=== PATIENT | female | born 2000 | race Hispanic/Latino ===

== ENCOUNTER 2020-01-07 16:49 | Emergency (ER) | payer MEDICAID, OTHER ==
[~2020-01-07 16:49] MED LIST: FERR500P12 MC; TYL3 PO
[2020-01-07] MEDS ORDERED: ONDANSETRON ODT 4 MG TAB ONE (17:16)
== END 2020-01-07 18:42 | disposition home or self-care (01) ==
LOC: EDH 16:49
DX: F41.1 Generalized anxiety disorder (principal); Z90.49 Acquired absence of other specified parts of digestive tract; Z98.890 Other specified postprocedural states

== ENCOUNTER 2022-05-20 16:20 | Emergency (ER) | payer OTHER ==
[~2022-05-20] VITALS: Ht 149.9 cm; Wt 71.7 kg
[2022-05-20 17:00] LABS: BASOPHILS % (AUTO) 0.1 % (0.0-5.0); EOSINOPHILS % (AUTO) 4.5 % (0.0-8.0); HEMATOCRIT 32.7 % (36-48); LYMPHOCYTES % (AUTO) 29.3 % (21.0-51.0); MEAN CORPUSCULAR HGB CONC 31.2 g/dL (32.0-36.0); MEAN CORPUSCULAR VOLUME 76.9 fL (79-99); MONOCYTES % (AUTO) 4.1 % (3.0-13.0); NEUTROPHILS % (AUTO) 61.7 % (40.0-77.0); PLATELET COUNT (AUTO) 343 K/uL (130-400); RED BLOOD CELL COUNT(AUTO) 4.25 MIL/uL (4.00-5.50); RED CELL DISTRIBUTION WIDTH 17.6 % (11.0-15.5); WHITE BLOOD COUNT (AUTO) 9.2 K/uL (4.8-10.8)
[2022-05-20] MEDS ORDERED: FAMOTIDINE 20MG VIAL IV ONE (17:00)
[2022-05-20] MEDS ORDERED: SOLU-MEDROL 125MG VIAL IVP ONE (17:00)
[2022-05-20] MEDS ORDERED: 0.9%NACL 1000ML 1,000 ML IV ONE (17:00)
[2022-05-20 17:16] LABS: BILIRUBIN,TOTAL 0.1 mg/dL (0.2-1.0); CREATININE 1.1 mg/dL (0.5-1.5); TOTAL PROTEIN, SERUM 6.3 g/dL (6.0-8.3)
[2022-05-20] MEDS ORDERED: POTASSIUM BICARB/CIT AC 25 MEQ TABLET.EFF PO ONE (18:30)
[2022-05-20] MEDS ORDERED: DIPH25 PO (19:05)
[2022-05-20] MEDS ORDERED: EPIN1KIT IJ (19:05)
[2022-05-20] MEDS ORDERED: PRED20TA3 PO (19:05)
[2022-05-20 19:08] VITALS: BP 106/51
== END 2022-05-20 19:20 | disposition home or self-care (01) ==
LOC: EDH 16:20
DX: T78.49XA Other allergy, initial encounter (principal); X58.XXXA Exposure to other specified factors, initial encounter
CPT/HCPCS: 36415; 80053; 82550; 85025; 96361; 96374; 96375; 99284; J2930; J3490; J7030

== ENCOUNTER 2023-07-13 19:31 | Emergency (ER) | payer BC, MEDICAID, OTHER ==
[~2023-07-13] VITALS: Ht 149.9 cm; Wt 68.9 kg
[~2023-07-13 19:31] MED LIST changes: +DIPH-1242 PO; +EPIN1KIT IJ; +PRED20TA3 PO
[2023-07-13 19:46] VITALS: BP 131/70; PULSE 73; RESP 18; O2SAT 98
== END 2023-07-13 21:37 | disposition left against medical advice (07) ==
LOC: EDH 19:31
DX: R10.9 Unspecified abdominal pain (principal); Z53.21 Procedure and treatment not carried out due to patient leaving prior to being seen by health care provider

== ENCOUNTER 2025-01-07 00:15 | Emergency (ER) | payer SELFPAY ==
[~2025-01-07] VITALS: Ht 149.9 cm; Wt 74.4 kg
--- NOTE | 2025-01-07 01:16 | ERN ---
ED Note History of Present Illness Stated Complaint: C/O PAIN W/BURNING WHEN VOIDING, LOWER BACK PAIN Chief Complaint: Painful Urination Time Seen by MD: 00:20 Time Seen by Midlevel: 00:20 Dictation: The patient is a 24-year-old female with a history of , cholecystectomy who presents to the emergency department with complaints of bilateral flank pain, more on the left, burning urination, nausea nonbloody vomiting, onset today. Patient denies any diarrhea or constipation. Reports l pain radiates to the left mid abdomen. Allergies: Coded Allergies: No Known Allergies (Unverified Allergy, Unknown, 07/31/15) Home Meds Active Scripts Sulfamethoxazole/Trimethoprim (Bactrim Ds Tablet) 800 Mg-160 Mg Tablet, 1 TAB PO BID for 7 Days, #14 TAB 0 Refills Prov:KRIS KING 01/07/25 Diphenhydramine HCl (Benadryl) 25 Mg Cap, 25 MG PO Q6HPRN PRN for RASH, #25 CAP Prov:GREG MOON [facility] 05/20/22 Prednisone (Prednisone) 20 Mg Tablet, 1 TAB PO AD for 6 Days, #14 TAB 0 Refills TAKE 1 TAB BY MOUTH THREE TIMES PER DAY X3 DAYS, THEN TAKE 1 TAB BY MOUTH TWICE A DAY X2 DAYS, THEN TAKE 1 TAB BY MOUTH ONCE A DAY X1 DAY. Prov:GREG MOON [facility] 05/20/22 Epinephrine (Epinephrine Professional Kit) 1 Mg/1 Ml Kit, 1 MG IJ ONCE, #1 KIT Prov:GREG MOON [facility] 05/20/22 Reported Medications Ferrous Sulfate, Dried (Ferrous Sulfate) 500 Gm Powder, 325 GM MC DAILY for A NEMIA, #30 APPL 08/04/15 Acetaminophen with Codeine (Tylenol with Codeine #3) 1 Tab Tab, 1 TAB PO Q4H PRN for PAIN, #20 TAB 08/04/15 Past Medical History Past Medical History: No Pertinent History Surgical History: Cholecystectomy, LMP: Nov 27, 2024 RN Note Reviewed/Agreed w/PFSH: Yes Review of System Dictation Constitutional: Negative for fever,chills, and weight loss Eyes: Negative for injury, pain,redness, and discharge ENT: Negative for injury,pain or swelling Cardiovascular: Negative for chest pain, palpitations, and edema Respiratory: Negative for shortness of breath, cough, and wheezing, Abdomen/GI: Negative for diarrhea, and constipation positive for nausea and vomiting positive for abdominal pain Back: Negative for injury and pain : Negative for injury, bleeding and discharge positive for bilateral flank pain MS/Extremity: Negative for injury and deformity Skin: Negative for rash, and discoloration Neuro: Negative for headache, weakness, numbness, tingling, and seizure Psych: Negative for suicide ideation, homicidal ideation, and hallucinations Initial Vital Sign VS Vital Signs Date Time Temp Pulse Resp B/P (MAP) Pulse Ox O2 Delivery O2 Flow Rate FiO2 01/07/25 00:18 98.4 70 20 114/77 97 Room Air Physical Exam Dictation Vital Signs reviewed General Appearance: Alert, oriented x 3, no acute distress, well developed, nourished. Head and Face: non-traumatic. Eyes: PERRL, pink conjunctivas, eyelid no trauma, anterior chamber with arcus senilis. Ears: Pinnas intact and no signs of trauma or erythema ear canals clear and no discharge TM no erythema Nose: No discharge, no bleeding. Oropharynx: Mouth normal, tongue pink. pharynx clear,no erythema, tonsils no exudates, no abscesses noted, mucous membrane moist Neck: Supple, non-tender, no thyromegaly, no masses, no JVD, no bruits Breast:Deferred Chest:No tenderness, no crepitus, no paradoxical movement, no retractions Lungs:Clear, well-ventilated, symmetric, no rales, no wheezing, no rhonchi, no stridor, good breath sounds bilaterally Heart: Regular rate, regular rhythm, no murmur, no gallops Vascular: no peripheral edema, Abdomen: Soft, positive bowel sounds, nondistended, no guarding, nontender, no rebound, no masses no hepatomegaly, no splenomegaly, no Horvath's sign, no hernias. Rectal: Deferred Genital: Deferred Neurological: Normal speech, motor function intact, sensory function intact Musculoskeletal: Neck nontender, full range of motion, back nontender, full range of motion, Extremities: nontender, full range of motion Skin: Color pink, dry, no turgor, no rash, no lacerations, no abrasions, no contusions. Lymphatic: Deferred Results (Laboratory/Radiology) Labs Reviewed?: Yes ED Course ED Course Orders Procedure Category Date Status Time Urinalysis Profile LAB 01/07/25 Logged 00:22 ,Urine Test LAB 01/07/25 Logged 00:27 Cbc With Differential LAB 01/07/25 Logged 00:37 0.9%Nacl 1000ml (Ns PHA 01/07/25 Complete 1000ml) 01:00 Ondansetron 4mg Inj PHA 01/07/25 Complete (Zofran 4mg Inj) 01:00 Basic Metabolic Panel LAB 01/07/25 Logged 00:37 Acetaminophen 500mg PHA 01/07/25 Complete Tab (Tylenol 500mg T 01:00 Ceftriaxone 1g Vial PHA 01/07/25 In Process (Rocephine 1g Inj) 04:30 Current Medications Medications (Trade) Dose Ordered Sig/Andrew Route PRN Reason Start Time Stop Time Status Last Admin Dose Admin Acetaminophen (TYLenol 500MG TAB) 1,000 mg ONCE ONCE PO 01/07/25 01:00 01/07/25 01:01 DC 01/07/25 02:26 Ceftriaxone Sodium (ROCEphine 1G INJ) 1 gm ONCE ONCE IM 01/07/25 04:30 01/07/25 04:31 Ondansetron HCl (zoFRAN 4MG INJ) 4 mg ONCE ONCE IVP 01/07/25 01:00 01/07/25 01:01 DC 01/07/25 02:25 Sodium Chloride 1,000 ml @ 0 mls/hr ONCE ONCE IV 01/07/25 01:00 01/07/25 01:01 DC 01/07/25 02:26 Vital Signs Date Time Temp Pulse Resp B/P (MAP) Pulse Ox O2 Delivery O2 Flow Rate FiO2 01/07/25 00:18 98.4 70 20 114/77 97 Room Air 2:00 a.m. patient care transition to Kris King PA-C Medical Decision Making MDM The patient is a 24-year-old female with a history of , cholecystectomy who presents to the emergency department with complaints of bilateral flank pain, more on the left, burning urination, nausea nonbloody vomiting, onset today. Patient denies any diarrhea or constipation. Reports l pain radiates to the left mid abdomen. Physical exam is reassuring. Vital signs are stable. Basic labs and UA was ordered. Patient was given IV fluids and p.o. Tylenol. There was a miscommunication regarding patient's blood work. Patient's blood work was never collected. According to the patient she provided a urinalysis sample but according to her lab staff they never received it. After 4 hours in the emergency department staff realized blood work had not been performed. I went to reassess the patient and she was stating that she would like to go home. Given that the patient was presenting with low back pain and dysuria we will treat for urinary tract infection. The patient was agreeable with this plan. The patient was given 1 g of Rocephin IM and was discharged home with a prescription for Bactrim. DX & DISP Disposition: Discharge Departure Impression: Primary Impression: Dysuria Condition: Stable Scripts Sulfamethoxazole/Trimethoprim (Bactrim Ds Tablet) 800 Mg-160 Mg Tablet 1 TAB PO BID for 7 Days, #14 TAB 0 Refills Prov: KRIS KING 01/07/25 Referrals: SELF,REFERRAL (PCP) I have reviewed the case, and I agree with, Diagnosis and Plan I performed the substantive portion of the visit. I have reviewed and personally made and approve the management plan that is documented in the note by myself or the CAMACHO. I acknowledge for responsibility for the patient's managem ent plan. SILVESTRE OVALLES Jan 07, 2025 01:16 KRIS KING Jan 07, 2025 01:56
[2025-01-07] MEDS: ondanSETRON 4MG INJ IVP ONE (02:25)
[2025-01-07] MEDS: acetaMINOPHEN 500 MG TABLET PO ONE (02:26)
[2025-01-07] MEDS: 0.9%NACL 1000ML 1,000 ML IV ONE (02:26)
--- NOTE | 2025-01-07 04:00 | NUR ---
PER PATIENT SHE HAD GIVEN A URINE SAMPLE. PER LAB, THEY NEVER RECIEVED THE URINE SAMPLE. KRIS WINN NOTIFIED. KRIS AT BEDSIDE SPEAKING WITH PATIENT. Addendum: 01/07/25 at 0448 by [email or web address] PER PATIENT SHE HAD GIVEN A URINE SAMPLE. PATIENT REFUSED LABS. PATIENT WANT IV TO BE REMOVED AND WANTED TO GO HOME. PER LAB, THEY NEVER RECIEVED THE URINE SAMPLE. KRIS WINN NOTIFIED. KRIS AT BEDSIDE SPEAKING WITH PATIENT.
[2025-01-07] MEDS: cefTRIAXone 1G VIAL IM ONE (04:21)
[2025-01-07] MEDS ORDERED: SULF1TAB42 PO (04:22)
[2025-01-07 04:30] VITALS: BP 116/78; PULSE 78; RESP 16; TEMP 98.8; O2SAT 99
[2025-01-07] MEDS: cefTRIAXone 1G VIAL ONE (04:45)
== END 2025-01-07 04:52 | disposition home or self-care (01) ==
LOC: EDH 00:15
DX: R30.0 Dysuria (principal); Z79.899 Other long term (current) drug therapy; Z90.49 Acquired absence of other specified parts of digestive tract; Z98.890 Other specified postprocedural states
CPT/HCPCS: 99284; 96374; 96361; 96372; J7030; J0696; J2405

== ENCOUNTER 2025-02-19 19:27 | Emergency (ER) | payer SELFPAY ==
[~2025-02-19] VITALS: Ht 149.9 cm; Wt 76.2 kg
[~2025-02-19 19:27] MED LIST changes: +SULF1TAB42 PO
--- NOTE | 2025-02-19 19:44 | ERN ---
General Chief Complaint: Vaginal Bleeding Stated Complaint: VAGINAL BLEEDING Time Seen by MD: 19:28 Source: patient History of Present Illness Initial Comments Patient is a healthy 24-year-old female five para three one miscarriage. This is her 5th , she thinks she is 11 weeks and five days . For the last day she has noted vaginal bleeding as well as back pain and abdominal pain lower left greater than right. Her deliveries have all been by . She states no chronic health problems no diabetes no medications no allergies. She does have nausea but she associates that with her . Timing/Duration: 24 hours Severity: mild Allergies: Coded Allergies: No Known Allergies (Unverified Allergy, Unknown, 07/31/15) Home Meds Active Scripts Sulfamethoxazole/Trimethoprim (Bactrim Ds Tablet) 800 Mg-160 Mg Tablet, 1 TAB PO BID for 7 Days, #14 TAB 0 Refills Prov:KRIS ELIZABETH 01/07/25 Diphenhydramine HCl (Benadryl) 25 Mg Cap, 25 MG PO Q6HPRN PRN for RASH, #25 CAP Prov:GREG MOON [facility] 05/20/22 Prednisone (Prednisone) 20 Mg Tablet, 1 TAB PO AD for 6 Days, #14 TAB 0 Refills TAKE 1 TAB BY MOUTH THREE TIMES PER DAY X3 DAYS, THEN TAKE 1 TAB BY MOUTH TWICE A DAY X2 DAYS, THEN TAKE 1 TAB BY MOUTH ONCE A DAY X1 DAY. Prov:GREG MOON [facility] 05/20/22 Epinephrine (Epinephrine Professional Kit) 1 Mg/1 Ml Kit, 1 MG IJ ONCE, #1 KIT Prov:GREG MOON [facility] 05/20/22 Reported Medications Ferrous Sulfate, Dried (Ferrous Sulfate) 500 Gm Powder, 325 GM MC DAILY for ANEMIA, #30 APPL 08/04/15 Acetaminophen with Codeine (Tylenol with Codeine #3) 1 Tab Tab, 1 TAB PO Q4H PRN for PAIN, #20 TAB 08/04/15 Past Medical History Past Medical History: No Pertinent History Past Surgical History: Cholecystectomy, Constitutional: (-) chills, (-) diaphoresis, (-) fever, (-) malaise, (-) weakness, (-) other documentation EENTM: (-) eye pain, (-) blurred vision, (-) tearing, (-) double vision, (-) ear pain, (-) ear discharge, (-) nose pain, (-) nose congestion, (-) throat pain, (-) Throat swelling, (-) mouth pain, (-) tooth pain, (-) mouth swelling, (-) other documentation Respiratory: (-) cough, (-) orthopnea, (-) short of breath, (-) stridor, (-) wheezing, (-) other documentation Cardiovascular: (-) chest pain, (-) edema, (-) palpitations, (-) syncope, (-) dyspnea on exertion, (-) other documentation Gastrointestinal/Abdominal: (-) nausea, (-) vomiting, (-) diarrhea, (-) abdominal pain, (-) abdominal distention, (-) constipation, (-) rectal bleeding, (-) dark stool/melena, (-) other documentation Genitourinary: (+) vaginal bleeding Musculoskeletal: (+) back pain Skin: (-) laceration, (-) contusion, (-) abrasion, (-) abscess, (-) rash, (-) change in color, (-) change in hair, (-) change in nails, (-) diaphoresis, (-) dryness, (-) other documentation Neuro: (-) altered mental status, (-) headache, (-) syncope, (-) paralysis, (-) numbness, (-) seizure, (-) pre-existing deficit, (-) tremors, (-) weakness, (-) dizziness, (-) slurred speech, (-) vertigo, (-) other documentation Physical Exam General Appearance: (+) mild distress, (+) moderate distress Orientation: (+) oriented x 3 Head/Face Trauma: No Eye: bilateral eye normal inspection, bilateral eye PERRL, bilateral eye EOMI Ear, Nose, Throat: (+) hearing grossly normal, (+) normal ENT inspection, (+) moist mucous membraine Neck: (+) normal inspection, (+) supple, (+) no JVD Respiratory: (+) chest non-tender, (+) lungs clear, (+) well ventilated Heart: (+) regular Vascular: (+) no edema, (+) normal peripheral pulse Gastrointestinal: (+) soft, (+) tender Gastrointestinal Comment Bilateral lower abdominal pain left greater than right no peritoneal signs bowel sounds positive Genital: (+) vaginal Bleeding Results Laboratory and Microbiology Lab and Micro Result Laboratory Tests Test 02/19/25 19:47 02/19/25 21:53 White Blood Count 10.3 K/uL (4.8-10.8) Red Blood Count 4.46 MIL/uL (4.00-5.50) Hemoglobin 12.1 g/dL (12.0-16.0) Hematocrit 37.5 % (36-48) Mean Corpuscular Volume 84.1 fL (79-99) Mean Corpuscular Hemoglobin 27.1 pg (27.0-33.0) Mean Corpuscular Hemoglobin Concent 32.3 g/dL (32.0-36.0) Red Cell Distribution Width 14.1 % (11.0-15.5) Platelet Count 260 K/uL (130-400) Mean Platelet Volume 11.8 fL (7.5-10.5) H Immature Granulocyte % (Auto) 0.3 % (0-1) Neutrophils (%) (Auto) 69.3 % (40.0-77.0) Lymphocytes (%) (Auto) 21.6 % (21.0-51.0) Monocytes (%) (Auto) 6.5 % (3.0-13.0) Eosinophils (%) (Auto) 1.9 % (0.0-8.0) Basophils (%) (Auto) 0.4 % (0.0-5.0) Neutrophils # (Auto) 7.1 K/uL (1.8-7.7) Lymphocytes # (Auto) 2.2 K/uL (1.0-4.8) Monocytes # (Auto) 0.7 K/uL (0.1-1.0) Eosinophils # (Auto) 0.20 K/uL (0.00-0.70) Basophils # (Auto) 0.04 K/uL (0.00-0.20) Absolute Immature Granulocyte (auto 0.03 K/uL (0-1) Nucleated Red Blood Cells 0.0 % (0.0-0.19) Sodium Level 139 mmol/L (136-145) Potassium Level 3.6 mmol/L (3.5-5.1) Chloride Level 102 mmol/L (101-111) Carbon Dioxide Level 27 mmol/L (21-32) Blood Urea Nitrogen 6 mg/dL (7-18) L Creatinine 0.6 mg/dL (0.5-1.0) Glomerular Filtration Rate Calc 127 mL/min (>90) Random Glucose 91 mg/dL (70-105) Total Calcium 8.6 mg/dL (8.5-10.1) Human Chorionic Gonadotropin, Quant 38675 mIU/mL (0-5) H Urine Color COLORLESS (YELLOW) Urine Appearance CLEAR (CLEAR) Urine pH 6.5 (5.0-8.0) Urine Specific [place] 1.005 (1.001-1.031) Urine Protein NEGATIVE mg/dL (NEGATIVE) Urine Glucose (UA) NEGATIVE mg/dL (NEGATIVE) Urine Ketones NEGATIVE mg/dL (NEGATIVE) Urine Occult Blood LARGE (NEGATIVE) H Urine Nitrate NEGATIVE (NEGATIVE) Urine Bilirubin NEGATIVE mg/dL (NEGATIVE) Urine Urobilinogen 0.2 mg/dL (0.2-1.0) Urine Leukocyte Esterase NEGATIVE Ericka/uL Urine RBC 51-100 /HPF (0-1) H Urine WBC 11-25 /HPF (0-1) H Urine Squamous Epithelial Cells RARE /HPF (0-2) Urine Other Crystals (Auto) 1 /HPF (None Seen) Urine Bacteria None /HPF (None Seen) MDM Patient thinks she is 11 weeks five days and has had back pain and lower abdominal pain left greater than right for the last day with bleeding. She has also been feeling weak for the last day. I will start with a CBC BMP transvaginal ultrasound quantitative and a UA. ultrasound shows that the fetus is viable in approximately 8-week-old. There is a little bit of bleeding associated with subchorionic bleed with no placental disruption. 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 I am waiting for the official read from Radiology before I can discharge the patient. Her CBC is normal, as are her vital signs. Official radiology read confirms a small subchorionic bleed. ED Course Orders Procedure Category Date Status Time Cbc With Differential LAB 02/19/25 Complete 19:38 Hcg,Quantitative LAB 02/19/25 Complete 19:38 Basic Metabolic Panel LAB 02/19/25 Complete 19:38 Urinalysis Profile LAB 02/19/25 Complete 19:39 Us Ob <14 Weeks US 02/19/25 Resulted 19:38 Lactated Ringers PHA 02/19/25 In Process 1000ml (Lactated 20:00 Type And Screen BBK 02/19/25 Complete 19:44 Culture Urine CARLOS 02/19/25 In Process 22:07 Current Medications Medications (Trade) Dose Ordered Sig/Andrew Route PRN Reason Start Time Stop Time Status Last Admin Dose Admin Lactated Ringer's (Lactated Ringers 1000ml) 1,000 ml BOLUS IV 02/19/25 20:00 03/21/25 19:59 02/19/25 20:33 Vital Signs Date Time Temp Pulse Resp B/P (MAP) Pulse Ox O2 Delivery O2 Flow Rate FiO2 02/19/25 19:30 99.0 77 18 124/66 100 Room Air 0 02/19/25 19:29 99.0 77 18 124/66 100 Room Air* 0 21 DX & DISP Disposition: Discharge Departure Impression: Primary Impression: Subchorionic bleed Condition: Stable Additional Instructions: Please return to this emergency room if you have more vaginal bleeding we can do a repeat ultrasound to be sure that the fetus is growing appropriately. Please contact Medicare and also the financial office here at the hospital as instructed by registration. Referrals: SELF,REFERRAL (PCP) ERIC GARCIA MD Feb 19, 2025 19:44
[2025-02-19 20:02] LABS: BASOPHILS # (AUTO) 0.04 K/uL (0.00-0.20); BASOPHILS % (AUTO) 0.4 % (0.0-5.0); EOSINOPHILS % (AUTO) 1.9 % (0.0-8.0); HEMATOCRIT 37.5 % (36-48); IMMATURE GRANULOCYTE ABSOLUTE 0.03 K/uL (0-1); LYMPHOCYTES # (AUTO) 2.2 K/uL (1.0-4.8); LYMPHOCYTES % (AUTO) 21.6 % (21.0-51.0); MEAN CORPUSCULAR HEMOGLOBIN 27.1 pg (27.0-33.0); MEAN CORPUSCULAR HGB CONC 32.3 g/dL (32.0-36.0); MEAN CORPUSCULAR VOLUME 84.1 fL (79-99); MONOCYTES # (AUTO) 0.7 K/uL (0.1-1.0); MONOCYTES % (AUTO) 6.5 % (3.0-13.0); NEUTROPHILS # (AUTO) 7.1 K/uL (1.8-7.7); NEUTROPHILS % (AUTO) 69.3 % (40.0-77.0); PLATELET COUNT (AUTO) 260 K/uL (130-400); RED BLOOD CELL COUNT(AUTO) 4.46 MIL/uL (4.00-5.50); RED CELL DISTRIBUTION WIDTH 14.1 % (11.0-15.5); WHITE BLOOD COUNT (AUTO) 10.3 K/uL (4.8-10.8)
[2025-02-19 20:13] LABS: CREATININE 0.6 mg/dL (0.5-1.0); POTASSIUM 3.6 mmol/L (3.5-5.1)
[2025-02-19] MEDS: LACTATED RINGERS 1000ML IV SCH (20:33)
[2025-02-19 22:01] LABS: APPEARANCE,URINE CLEAR (CLEAR); BILIRUBIN,URINE NEGATIVE (NEGATIVE); COLOR,URINE COLORLESS (YELLOW); GLUCOSE, URINE (UA) NEGATIVE (NEGATIVE); KETONES,URINE NEGATIVE (NEGATIVE); LEUKOCYTE ESTERASE ,URINE NEGATIVE Leu/uL (NEGATIVE); NITRATE,URINE NEGATIVE (NEGATIVE); OCCULT BLOOD,URINE LARGE (NEGATIVE); PH,URINE 6.5 (5.0-8.0); PROTEIN,URINE NEGATIVE (NEGATIVE); UROBILINOGEN,URINE 0.2 mg/dL (0.2-1.0)
--- NOTE | 2025-02-19 22:02 | HMCIMG ---
ULTRASOUND OF THE PELVIS ULTRASOUND ABD VASCULAR LIMITED INDICATION: Pelvic pain COMPARISONS: None TECHNIQUE: Transabdominal real-time sonographic images were acquired earlier, and subsequently made available for review. FINDINGS: The uterus measures 12.4 x 4.4 x 7.7 cm. The uterus is normal in echotexture and contour. Single live intrauterine gestation corresponds to sonographic gestational age of 8 weeks 1 days based on crown-rump length of 3.6 cm. 1.0 cm abnormal subchorionic hypoechoic area demonstrated superiorly. heart rate = 158 BPM. The right ovary measures 3.1 x 1.4 x 2.8 cm. The right ovary is normal in size, shape and echogenicity. No right adnexal masses demonstrated. Color Doppler flow is normal throughout the right ovary. Spectral Doppler analysis demonstrates a normal waveform pattern. The left ovary measures 2.4 x 1.9 x 2.8 cm. The left ovary is normal in size, shape and echogenicity. No left adnexal masses demonstrated. Color Doppler flow is normal throughout the left ovary. Spectral Doppler analysis demonstrates a normal waveform pattern. No free pelvic fluid demonstrated. IMPRESSION: 1. Single live intrauterine gestation corresponding to sonographic gestational age of 8 weeks 1 days based on crown-rump length, and with heart rate = 158 BPM. 2. Very small subchorionic hemorrhage. 3. ERICK = 09/30/2025.
[2025-02-19 22:06] LABS: ADD UA MICROSCOPIC YES; RBC,URINE 51-100 /HPF (0-1); SQUAMOUS EPITHELIAL CELL,UR RARE /HPF (0-2); UNCLASSIFIED CRYSTAL 1 /HPF (None Seen)
[2025-02-19 22:23] VITALS: BP 118/62; PULSE 72; RESP 16; TEMP 98.8; O2SAT 100
== END 2025-02-19 22:25 | disposition home or self-care (01) ==
LOC: EDH 19:27
DX: O20.8 Other hemorrhage in early pregnancy (principal); R10.2 Pelvic and perineal pain; Z3A.11 11 weeks gestation of pregnancy; Z79.899 Other long term (current) drug therapy; Z90.49 Acquired absence of other specified parts of digestive tract; Z98.890 Other specified postprocedural states
CPT/HCPCS: 99284; 76801; 80048; 84702; 85025; 86850; 86900; 86901; 87086; 81001; 36415; J7120

== ENCOUNTER 2025-02-26 22:43 | Emergency (ER) | payer SELFPAY ==
[~2025-02-26] VITALS: Ht 160 cm; Wt 72.6 kg
--- NOTE | 2025-02-26 22:46 | NUR ---
UA CUP PROVIDED
--- NOTE | 2025-02-26 22:59 | ERN ---
General Chief Complaint: Syncope Stated Complaint: SYNCOPE Time Seen by MD: 22:46 Source: patient History of Present Illness Initial Comments This is a 24-year-old female who has been experiencing feelings of lightheadedness over the last several weeks today. When she stood up from a chair she immediately experienced the lightheadedness and in fact fainted. Family caught her before she hit the floor. They said maybe she was out for 2 minutes. Other than that patient states no complaints no fevers no chills no nausea no vomiting no change in urination or bowel movements. She thinks she is starting to feel some movement with her fetus. Allergies: Coded Allergies: No Known Allergies (Unverified Allergy, Unknown, 07/31/15) Home Meds Active Scripts Sulfamethoxazole/Trimethoprim (Bactrim Ds Tablet) 800 Mg-160 Mg Tablet, 1 TAB PO BID for 7 Days, #14 TAB 0 Refills Prov:KRIS ELIZABETH 01/07/25 Diphenhydramine HCl (Benadryl) 25 Mg Cap, 25 MG PO Q6HPRN PRN for RASH, #25 CAP Prov:GREG MOON [facility] 05/20/22 Prednisone (Prednisone) 20 Mg Tablet, 1 TAB PO AD for 6 Days, #14 TAB 0 Refills TAKE 1 TAB BY MOUTH THREE TIMES PER DAY X3 DAYS, THEN TAKE 1 TAB BY MOUTH TWICE A DAY X2 DAYS, THEN TAKE 1 TAB BY MOUTH ONCE A DAY X1 DAY. Prov:GREG MOON [facility] 05/20/22 Epinephrine (Epinephrine Professional Kit) 1 Mg/1 Ml Kit, 1 MG IJ ONCE, #1 KIT Prov:GREG MOON [facility] 05/20/22 Reported Medications Ferrous Sulfate, Dried (Ferrous Sulfate) 500 Gm Powder, 325 GM MC DAILY for ANEMIA, #30 APPL 08/04/15 Acetaminophen with Codeine (Tylenol with Codeine #3) 1 Tab Tab, 1 TAB PO Q4H PRN for PAIN, #20 TAB 08/04/15 Past Medical History Past Medical History: No Pertinent History Past Surgical History: Cholecystectomy, Female( History) LMP: Nov 30, 2024 : 5 Para: 3 Aborts: 1 Constitutional: (-) chills, (-) diaphoresis, (-) fever, (-) malaise, (-) weakness, (-) other documentation EENTM: (+) blurred vision Respiratory: (-) cough, (-) orthopnea, (-) short of breath, (-) stridor, (-) wheezing, (-) other documentation Cardiovascular: (-) chest pain, (-) edema, (-) palpitations, (-) syncope, (-) dyspnea on exertion, (-) other documentation Gastrointestinal/Abdominal: (-) nausea, (-) vomiting, (-) diarrhea, (-) abdominal pain, (-) abdominal distention, (-) constipation, (-) rectal bleeding, (-) dark stool/melena, (-) other documentation Genitourinary: (-) vaginal discharge, (-) vaginal bleeding, (-) dysuria, (-) frequency, (-) hematuria, (-) pain, (-) other documentation Musculoskeletal: (-) Neck pain, (-) back pain, (-) Flank Pain, (-) joint pain, (-) joint swelling, (-) muscle pain, (-) muscle stiffness, (-) gout, (-) other documentation Neuro: (+) headache Physical Exam General Appearance: (+) no apparent distress Orientation: (+) oriented x 3 Head/Face Trauma: No Eye: bilateral eye normal inspection, bilateral eye PERRL, bilateral eye EOMI Ear, Nose, Throat: (+) hearing grossly normal, (+) normal ENT inspection, (+) moist mucous membraine Neck: (+) normal inspection Neck Comment Patient does have paraspinal muscle tenderness bilaterally and also including her trapezius bilateral. Surprisingly she does report some C-spine tenderness. Respiratory: (+) chest non-tender, (+) lungs clear, (+) well ventilated Heart: (+) regular, (+) no gallop Vascular: (+) no edema, (+) normal peripheral pulse Gastrointestinal: (+) soft, (+) non-tender, (+) bowel sound present Results Laboratory and Microbiology Lab and Micro Result Laboratory Tests Test 02/26/25 23:34 02/26/25 23:35 White Blood Count 11.9 K/uL (4.8-10.8) H Red Blood Count 4.47 MIL/uL (4.00-5.50) Hemoglobin 12.2 g/dL (12.0-16.0) Hematocrit 37.8 % (36-48) Mean Corpuscular Volume 84.6 fL (79-99) Mean Corpuscular Hemoglobin 27.3 pg (27.0-33.0) Mean Corpuscular Hemoglobin Concent 32.3 g/dL (32.0-36.0) Red Cell Distribution Width 14.0 % (11.0-15.5) Platelet Count 260 K/uL (130-400) Mean Platelet Volume 12.2 fL (7.5-10.5) H Immature Granulocyte % (Auto) 0.3 % (0-1) Neutrophils (%) (Auto) 72.9 % (40.0-77.0) Lymphocytes (%) (Auto) 18.4 % (21.0-51.0) L Monocytes (%) (Auto) 6.8 % (3.0-13.0) Eosinophils (%) (Auto) 1.3 % (0.0-8.0) Basophils (%) (Auto) 0.3 % (0.0-5.0) Neutrophils # (Auto) 8.7 K/uL (1.8-7.7) H Lymphocytes # (Auto) 2.2 K/uL (1.0-4.8) Monocytes # (Auto) 0.8 K/uL (0.1-1.0) Eosinophils # (Auto) 0.16 K/uL (0.00-0.70) Basophils # (Auto) 0.03 K/uL (0.00-0.20) Absolute Immature Granulocyte (auto 0.03 K/uL (0-1) Nucleated Red Blood Cells 0.0 % (0.0-0.19) Sodium Level 135 mmol/L (136-145) L Potassium Level 3.9 mmol/L (3.5-5.1) Chloride Level 102 mmol/L (101-111) Carbon Dioxide Level 23 mmol/L (21-32) Blood Urea Nitrogen 6 mg/dL (7-18) L Creatinine 0.6 mg/dL (0.5-1.0) Glomerular Filtration Rate Calc 127 mL/min (>90) Random Glucose 87 mg/dL (70-105) Total Calcium 8.7 mg/dL (8.5-10.1) Total Bilirubin 0.3 mg/dL (0.2-1.0) Aspartate Amino Transf (AST/SGOT) 35 U/L (10-37) Alanine Aminotransferase (ALT/SGPT) 20 U/L (12-78) Alkaline Phosphatase 88 U/L (50-136) Total Protein 7.4 g/dL (6.0-8.3) Albumin 3.2 g/dL (3.5-5.0) L Human Chorionic Gonadotropin, Quant 26126 mIU/mL (0-5) H Urine Color COLORLESS (YELLOW) Urine Appearance CLEAR (CLEAR) Urine pH 6.5 (5.0-8.0) Urine Specific [place] 1.004 (1.001-1.031) Urine Protein NEGATIVE mg/dL (NEGATIVE) Urine Glucose (UA) NEGATIVE mg/dL (NEGATIVE) Urine Ketones 20 mg/dL (NEGATIVE) H Urine Occult Blood NEGATIVE (NEGATIVE) Urine Nitrate NEGATIVE (NEGATIVE) Urine Bilirubin NEGATIVE mg/dL (NEGATIVE) Urine Urobilinogen 0.2 mg/dL (0.2-1.0) Urine Leukocyte Esterase 25 Ericka/uL (NEGATIVE) H Urine RBC None /HPF (0-1) Urine WBC 2-5 /HPF (0-1) H Urine Squamous Epithelial Cells RARE /HPF (0-2) Urine Bacteria None /HPF (None Seen) MDM Orders written at 11:15 p.m. . Given patient's history of vaginal bleeding and syncope we have to repeat a CBC and a transvaginal ultrasound. I will also get a BMP and quantitative test. I will give her a L of fluid. Patient's CBC shows hemoglobin of 12 a white blood cell of 11 which could be due to her . Chemistry panel is normal normal glucose. Urine does have ketones and leukocyte esterase activity, no blood. Patient is still tachycardic and the nurses noticing that the patient's blood pressure seems to go up and down with her movements. I do think the patient may still be dehydrated. We will get orthostatic vital signs and bolused her another L of fluid. Ultrasound shows fetus. Subcoronal cyst is still there, previous size one week ago was 12 x 4.4 x 7.7 mm. This week it is 12 x 8 x 8 mm. Patient is feeling better now. She says she has some antibiotics from [facility] she will take those. She sees her new stitcher hand physician on [place]. Patient stable for discharge. ED Course Orders Procedure Category Date Status Time Cbc With Differential LAB 02/26/25 Complete 23:13 Comprehensive LAB 02/26/25 Complete Metabolic Panel 23:13 Urinalysis Profile LAB 02/26/25 Complete 23:13 Hcg,Quantitative LAB 02/26/25 Complete 23:13 Lactated Ringers PHA 02/26/25 Complete 1000ml (Lactated 23:16 Us Ob <14 Weeks US 02/26/25 Resulted 23:13 Orthostatic Vital CPOE 02/27/25 Transmitted Signs 00:21 Current Medications Medications (Trade) Dose Ordered Sig/Andrew Route PRN Reason Start Time Stop Time Status Last Admin Dose Admin Lactated Ringer's (Lactated Ringers 1000ml) 1,000 ml BOLUS STAT IV 02/26/25 23:16 02/26/25 23:19 DC 02/26/25 23:23 Vital Signs Date Time Temp Pulse Resp B/P (MAP) Pulse Ox O2 Delivery O2 Flow Rate FiO2 02/27/25 01:41 98.1 70 18 122/70 100 Room Air* 0 21 02/26/25 23:10 97.9 83 18 123/82 98 Room Air* 0 21 02/26/25 22:44 97.9 82 16 123/81 100 Room Air DX & DISP Disposition: Discharge Departure Impression: Primary Impression: Vaginal bleeding before 22 weeks gestation Additional Impression: Hypovolemia Condition: Stable Referrals: SELF,REFERRAL (PCP) ERIC GARCIA MD Feb 26, 2025 22:59
[2025-02-26] MEDS: LACTATED RINGERS 1000ML IV STA (23:23)
[2025-02-26 23:48] LABS: BASOPHILS # (AUTO) 0.03 K/uL (0.00-0.20); BASOPHILS % (AUTO) 0.3 % (0.0-5.0); EOSINOPHILS # (AUTO) 0.16 K/uL (0.00-0.70); EOSINOPHILS % (AUTO) 1.3 % (0.0-8.0); HEMATOCRIT 37.8 % (36-48); IMMATURE GRANULOCYTE ABSOLUTE 0.03 K/uL (0-1); LYMPHOCYTES # (AUTO) 2.2 K/uL (1.0-4.8); LYMPHOCYTES % (AUTO) 18.4 % (21.0-51.0); MEAN CORPUSCULAR HEMOGLOBIN 27.3 pg (27.0-33.0); MEAN CORPUSCULAR HGB CONC 32.3 g/dL (32.0-36.0); MEAN CORPUSCULAR VOLUME 84.6 fL (79-99); MONOCYTES # (AUTO) 0.8 K/uL (0.1-1.0); MONOCYTES % (AUTO) 6.8 % (3.0-13.0); NEUTROPHILS # (AUTO) 8.7 K/uL (1.8-7.7); NEUTROPHILS % (AUTO) 72.9 % (40.0-77.0); PLATELET COUNT (AUTO) 260 K/uL (130-400); RED BLOOD CELL COUNT(AUTO) 4.47 MIL/uL (4.00-5.50); WHITE BLOOD COUNT (AUTO) 11.9 K/uL (4.8-10.8)
[2025-02-26 23:54] LABS: APPEARANCE,URINE CLEAR (CLEAR); BILIRUBIN,URINE NEGATIVE (NEGATIVE); COLOR,URINE COLORLESS (YELLOW); GLUCOSE, URINE (UA) NEGATIVE (NEGATIVE); KETONES,URINE 20 mg/dL (NEGATIVE); LEUKOCYTE ESTERASE ,URINE 25 Leu/uL (NEGATIVE); NITRATE,URINE NEGATIVE (NEGATIVE); OCCULT BLOOD,URINE NEGATIVE (NEGATIVE); PH,URINE 6.5 (5.0-8.0); PROTEIN,URINE NEGATIVE (NEGATIVE); UROBILINOGEN,URINE 0.2 mg/dL (0.2-1.0)
[2025-02-27 00:06] LABS: ADD UA MICROSCOPIC YES
[2025-02-27 00:07] LABS: SQUAMOUS EPITHELIAL CELL,UR RARE /HPF (0-2)
--- NOTE | 2025-02-27 00:12 | HMCIMG ---
US OB <14 WEEKS HISTORY: Bleeding COMPARISON: 02/19/2025 TECHNIQUE: Obstetrical ultrasound study was performed. FINDINGS: The uterus measures 11.7 x 5.6 x 8 centimeter. Right ovary measures 3.1 x 1.5 x 2.5 centimeter. Left ovary measures 3.1 x 1.9 x 2.6 centimeter. There is single intrauterine gestation with estimated gestational age of 10 weeks and 5 days. Small subchorionic hemorrhage is seen measuring 12 x 8 x 8 mm. heart rate is 157 beats per minute. No fluid is seen in the cul-de-sac. IMPRESSION: 1. There is single intrauterine gestation with estimated gestational age of 10 weeks and 5 days. heart rate is 157 beats per minute.
[2025-02-27 00:39] LABS: CREATININE 0.6 mg/dL (0.5-1.0); POTASSIUM 3.9 mmol/L (3.5-5.1)
[2025-02-27 01:08] LABS: ALBUMIN 3.2 g/dL (3.5-5.0); BILIRUBIN,TOTAL 0.3 mg/dL (0.2-1.0); TOTAL PROTEIN, SERUM 7.4 g/dL (6.0-8.3)
[2025-02-27 01:41] VITALS: BP 122/70; PULSE 70; RESP 18; TEMP 98; O2SAT 100
--- NOTE | 2025-02-27 02:15 | NUR ---
ORTHO VITALS: LYING 109/54, 96%, 83 SITTING 123/78, 99%, 102 STANDING 119/73, 100%, 78
== END 2025-02-27 02:36 | disposition home or self-care (01) ==
LOC: EDH 22:43
DX: O99.281 Endocrine, nutritional and metabolic diseases complicating pregnancy, first trimester (principal); E86.1 Hypovolemia; O26.891 Other specified pregnancy related conditions, first trimester; R10.2 Pelvic and perineal pain; Z3A.10 10 weeks gestation of pregnancy; Z90.49 Acquired absence of other specified parts of digestive tract; W22.03XA Walked into furniture, initial encounter; Y93.89 Activity, other specified; Y92.89 Other specified places as the place of occurrence of the external cause; Y99.8 Other external cause status
CPT/HCPCS: 99284; 96360; 76801; 80053; 84702; 85025; 81001; 36415; J7120

== ENCOUNTER 2025-03-02 00:06 | Emergency (ER) | payer MEDICAID ==
[~2025-03-02] VITALS: Ht 149.9 cm; Wt 74.4 kg
--- NOTE | 2025-03-02 00:46 | NUR ---
ULTRASOUND WITH PATIENT
[2025-03-02 01:12] LABS: BASOPHILS # (AUTO) 0.02 K/uL (0.00-0.20); BASOPHILS % (AUTO) 0.2 % (0.0-5.0); EOSINOPHILS # (AUTO) 0.25 K/uL (0.00-0.70); HEMATOCRIT 34.3 % (36-48); IMMATURE GRANULOCYTE ABSOLUTE 0.04 K/uL (0-1); LYMPHOCYTES # (AUTO) 1.9 K/uL (1.0-4.8); LYMPHOCYTES % (AUTO) 15.7 % (21.0-51.0); MEAN CORPUSCULAR HEMOGLOBIN 27.9 pg (27.0-33.0); MEAN CORPUSCULAR HGB CONC 33.2 g/dL (32.0-36.0); MEAN CORPUSCULAR VOLUME 83.9 fL (79-99); MONOCYTES # (AUTO) 0.8 K/uL (0.1-1.0); MONOCYTES % (AUTO) 6.1 % (3.0-13.0); NEUTROPHILS # (AUTO) 9.3 K/uL (1.8-7.7); NEUTROPHILS % (AUTO) 75.7 % (40.0-77.0); PLATELET COUNT (AUTO) 251 K/uL (130-400); RED BLOOD CELL COUNT(AUTO) 4.09 MIL/uL (4.00-5.50); RED CELL DISTRIBUTION WIDTH 13.8 % (11.0-15.5); WHITE BLOOD COUNT (AUTO) 12.3 K/uL (4.8-10.8)
[2025-03-02 01:28] LABS: CREATININE 0.6 mg/dL (0.5-1.0)
--- NOTE | 2025-03-02 03:06 | NUR ---
TRANSFER: CALL PLACED TO [facility] TRANSFER [facility]; TRANSFER INITIATED FOR OB SERVICES; PATIENT IS 12 WKS WITH PREMATURE RUPTURE OF MEMBRANES.
--- NOTE | 2025-03-02 03:35 | ERN ---
General Chief Complaint: OB<20 weeks gest. Stated Complaint: 12 WKS , DISCHARGE Time Seen by MD: 00:18 Time Seen by Midlevel: 00:18 Source: patient History of Present Illness Initial Comments The patient is a 24-year-old female who is currently approximately 12 weeks presenting to the emergency department for evaluation of large amount of vaginal discharge described as if her water broke. This occurred just prior to arrival. She is followed by OBGYN Dr. Dre Contreras. She is a A1. Patient denies any other symptoms. Allergies: Coded Allergies: No Known Allergies (Unverified Allergy, Unknown, 07/31/15) Home Meds Active Scripts Sulfamethoxazole/Trimethoprim (Bactrim Ds Tablet) 800 Mg-160 Mg Tablet, 1 TAB PO BID for 7 Days, #14 TAB 0 Refills Prov:KRIS ELIZABETH 01/07/25 Diphenhydramine HCl (Benadryl) 25 Mg Cap, 25 MG PO Q6HPRN PRN for RASH, #25 CAP Prov:GREG MOON [facility] 05/20/22 Prednisone (Prednisone) 20 Mg Tablet, 1 TAB PO AD for 6 Days, #14 TAB 0 Refills TAKE 1 TAB BY MOUTH THREE TIMES PER DAY X3 DAYS, THEN TAKE 1 TAB BY MOUTH TWICE A DAY X2 DAYS, THEN TAKE 1 TAB BY MOUTH ONCE A DAY X1 DAY. Prov:GREG MOON [facility] 05/20/22 Epinephrine (Epinephrine Professional Kit) 1 Mg/1 Ml Kit, 1 MG IJ ONCE, #1 KIT Prov:GREG MOON [facility] 05/20/22 Reported Medications Ferrous Sulfate, Dried (Ferrous Sulfate) 500 Gm Powder, 325 GM MC DAILY for ANEMIA, #30 APPL 08/04/15 Acetaminophen with Codeine (Tylenol with Codeine #3) 1 Tab Tab, 1 TAB PO Q4H PRN for PAIN, #20 TAB 08/04/15 Past Medical History Past Medical History: No Pertinent History Past Surgical History: Cholecystectomy, Female( History) : 5 Para: 3 Aborts: 1 ROS Dictation CONSTITUTIONAL: Negative except for HPI HEAD/FACE: Negative except for HPI EENT: Negative except for HPI RESPIRATORY: Negative except for HPI GASTROINTESTINAL/ABDOMINAL: Negative except for HPI GENITOURINARY: Negative except for HPI MUSCULOSKELETAL: Negative except for HPI INTEGUMENTARY: Negative except for HPI NEUROLOGICAL/PSYCH: Negative except for HPI HEMATOLOGIC/LYMPHATIC: Negative except for HPI All Systems Negative, Except as noted above. 13 point review of systems assessed and all negative except for above. Physical Exam Physical Exam Dictation Vital Signs reviewed General Appearance: Alert, oriented x 3, no acute distress, well developed, nourished. Head and Face: non-traumatic. Eyes: PERRL, pink conjunctivas, eyelid no trauma, anterior chamber with arcus senilis. Ears: Pinnas intact and no signs of trauma or erythema ear canals clear and no discharge TM no erythema Nose: No discharge, no bleeding. Oropharynx: Mouth normal, tongue pink, pharynx clear,no erythema, tonsils no exudates, no abscesses noted, mucous membrane moist Neck: Supple, non-tender, no thyromegaly, no masses, no JVD, no bruits Breast:Deferred Chest:No tenderness, no crepitus, no paradoxical movement, no retractions Lungs:Clear, well-ventilated, symmetric, no rales, no wheezing, no rhonchi, no stridor, good breath sounds bilaterally Heart: Regular rate, regular rhythm, no murmur, no gallops Vascular: no peripheral edema, Abdomen: Soft, positive bowel sounds, nondistended, no guarding, nontender, no rebound, no masses no hepatomegaly, no splenomegaly, no Horvath's sign, no hernias. Rectal: Deferred Genital: Deferred Neurological: Normal speech, motor function intact, sensory function intact Musculoskeletal: Neck nontender, full range of motion, back nontender, full range of motion, Extremities: nontender, full range of motion Skin: Color pink, dry, no turgor, no rash, no lacerations, no abrasions, no contusions. Lymphatic: Deferred Results Laboratory and Microbiology Lab and Micro Result Laboratory Tests Test 03/02/25 00:57 White Blood Count 12.3 K/uL (4.8-10.8) H Red Blood Count 4.09 MIL/uL (4.00-5.50) Hemoglobin 11.4 g/dL (12.0-16.0) L Hematocrit 34.3 % (36-48) L Mean Corpuscular Volume 83.9 fL (79-99) Mean Corpuscular Hemoglobin 27.9 pg (27.0-33.0) Mean Corpuscular Hemoglobin Concent 33.2 g/dL (32.0-36.0) Red Cell Distribution Width 13.8 % (11.0-15.5) Platelet Count 251 K/uL (130-400) Mean Platelet Volume 11.9 fL (7.5-10.5) H Immature Granulocyte % (Auto) 0.3 % (0-1) Neutrophils (%) (Auto) 75.7 % (40.0-77.0) Lymphocytes (%) (Auto) 15.7 % (21.0-51.0) L Monocytes (%) (Auto) 6.1 % (3.0-13.0) Eosinophils (%) (Auto) 2.0 % (0.0-8.0) Basophils (%) (Auto) 0.2 % (0.0-5.0) Neutrophils # (Auto) 9.3 K/uL (1.8-7.7) H Lymphocytes # (Auto) 1.9 K/uL (1.0-4.8) Monocytes # (Auto) 0.8 K/uL (0.1-1.0) Eosinophils # (Auto) 0.25 K/uL (0.00-0.70) Basophils # (Auto) 0.02 K/uL (0.00-0.20) Absolute Immature Granulocyte (auto 0.04 K/uL (0-1) Nucleated Red Blood Cells 0.0 % (0.0-0.19) Sodium Level 138 mmol/L (136-145) Potassium Level 4.0 mmol/L (3.5-5.1) Chloride Level 104 mmol/L (101-111) Carbon Dioxide Level 25 mmol/L (21-32) Blood Urea Nitrogen 6 mg/dL (7-18) L Creatinine 0.6 mg/dL (0.5-1.0) Glomerular Filtration Rate Calc 127 mL/min (>90) Random Glucose 90 mg/dL (70-105) Total Calcium 8.5 mg/dL (8.5-10.1) Human Chorionic Gonadotropin, Quant 70481 mIU/mL (0-5) H Labs Reviewed?: Yes MDM MDM: The patient is a 24-year-old female who is currently approximately 12 weeks presenting to the emergency department for evaluation of large amount of vaginal discharge described as if her water broke. This occurred just prior to arrival. She is followed by OBGYN Dr. Dre Contreras. She is a A1. Patient denies any other symptoms. Initial vital signs are stable. Patient has a heart rate of 69 beats per minute. Blood pressure stable at 120/65. Patient was afebrile and nontoxic appearing. On physical examination the patient was in no acute respiratory distress. Abdominal examination is benign. CBC shows slight leukocytosis with a left shift. There is mild anemia with a hemoglobin of 11.4. Platelets are normal. Chemistries are unremarkable. HCG quant is 53,481. Ultrasound report per stat Rad is remarkable for a single viable intrauterine gestation measuring approximately 11 weeks and five days. There is positive heart tones at 131 beats per minute. There was anhydramnios noted with no appreciable amniotic fluid seen. Ovaries are unremarkable. OBGYN was consulted. I discussed case with Dr. Santoro who recommends transfer to [facility] for further observation and management. He recommends transferring the patient to mother baby. This was discussed with the patient and she agrees with transfer. Transfer was initiated. Differential diagnosis: Threatened , miscarriage, chorioamnionitis, anhydramnios Rationale: Tests considered and ordered secondary to shared decision making include: Previous outside records reviewed: Old ER visits. Risk of complication and/or morbidity or mortality of patient management: None Medications-Per medication reconciliation Need for hospitalization: Patient does meet criteria for hospitalization. Need for emergency major/minor surgery: No There are no social concerns with this patient. Prescription drug management Prescriptions will include symptomatic care Patient's prior external medical records from other ER visits were reviewed by me as indicated. Prior testing and results from previous visits were reviewed. Prior tests were taken into account with medical decision making and resource utilization, independent historian/historians were used to obtain complete medical history. I independently interpreted the test that were performed, results were reviewed by me and considered findings on radiology if ordered. Medical management and examination interpretation discussions were had by me with other qualified healthcare professionals as indicated for the patient's care. ED Course Orders Procedure Category Date Status Time Vital Signs Per CPOE 03/02/25 Transmitted Routine 00:18 Cbc With Differential LAB 03/02/25 Complete 00:18 Type And Screen BBK 03/02/25 Complete 00:18 Iv Insertion CPOE 03/02/25 Transmitted 00:18 Hcg,Quantitative LAB 03/02/25 Complete 00:22 Urinalysis Profile LAB 03/02/25 Logged 00:22 Us Ob <14 Weeks US 03/02/25 Taken 00:22 Basic Metabolic Panel LAB 03/02/25 Complete 00:57 Vital Signs Date Time Temp Pulse Resp B/P (MAP) Pulse Ox O2 Delivery O2 Flow Rate FiO2 03/02/25 00:11 98.4 69 18 120/65 100 Room Air* 0 21 03/02/25 00:08 98.4 69 20 120/65 100 Room Air 0 DX & DISP Disposition: Transfer ([facility]) Departure Impression: Primary Impression: Anhydramnios in first trimester Condition: Stable Referrals: SELF,REFERRAL (PCP) I have reviewed the case, and I agree with, Diagnosis and Plan I performed the substantive portion of the visit. I have reviewed and personally made and approve the management plan that is documented in the note by myself or the CAMACHO. I acknowledge for responsibility for the patient's management plan. KRIS ELIZABETH Mar 02, 2025 03:35
--- NOTE | 2025-03-02 04:06 | NUR ---
TRANSFER: PATIENT ACCEPTED TO [facility] ROOM #[id number]; DR. MOSES SAHU.
--- NOTE | 2025-03-02 04:18 | NUR ---
TRANSPORT: CALL PLACED TO [facility] FOR TRANSPORTATION TO [facility]; [facility] ROOM #[id number].
[2025-03-02 04:24] VITALS: BP 105/51; PULSE 76; RESP 16; TEMP 98.5; O2SAT 97
--- NOTE | 2025-03-02 05:02 | NUR ---
RE[place] GIV[place] TO KRYSTEN STEWART [place] [facility] [place] [facility]
--- NOTE | 2025-03-02 10:19 | HMCIMG ---
TRANSABDOMINAL AND TRANSVAGINAL PELVIC ULTRASOUND; DATED 03/02/2025 10:16 AM CDT. CLINICAL INDICATION : vaginal discharge/bleeding appprox 12 weeks FINDINGS: Single live intrauterine gestation in the fundal endometrium. No perigestational sac hematoma identified. There is evidence of anhydramnios. CRL measures 5.19 cm , corresponds to 11 weeks 5 days. cardiac activity and heart rate is 131 beats per minute. The uterus is anteverted with normal shape. It measures 13.9 x 5.3 x 7.9 cm in its maximum length, anteroposterior and transverse dimensions. The myometrium is homogeneous and there is no evidence of focal or diffuse lesions. Both ovaries appear normal with normal flow on color and Spectral Doppler. The right ovary measures 4 x 2 x 2.3 cm and the left ovary measures 4.1 x 2.5 x 3.5 cm. No adnexal masses. No free fluid or collections. Urinary bladder appears normal. IMPRESSION: 1. Single live intrauterine gestation 11 weeks 5 days. 2. Anhydramnios.
== END 2025-03-02 05:04 | disposition short-term general hospital (02) ==
LOC: EDH 00:06
DX: O26.891 Other specified pregnancy related conditions, first trimester (principal); N89.8 Other specified noninflammatory disorders of vagina; Z90.49 Acquired absence of other specified parts of digestive tract; Z3A.12 12 weeks gestation of pregnancy
CPT/HCPCS: 36415; 76801; 80048; 84702; 85025; 86850; 86900; 86901; 99284; 99285